=== PATIENT | female | born 1940 | race Caucasian/White ===

== ENCOUNTER 2017-03-07 17:57 | Emergency (ER) | payer OTHER ==
[~2017-03-07] VITALS: Ht 170.2 cm; Wt 86.0 kg
[2017-03-07 18:03] VITALS: TEMP 37.1; Ht 170.2 cm; Wt 86.0 kg
[2017-03-07] MEDS ORDERED: SODIUM CHLORIDE 0.9% 1000ML 1,000 ML IV STA (19:08)
[2017-03-07 19:14] LABS: BASO % 0.1 %; BASO ABS # 0.01 K/uL (0-0.2); COMPLETE YES; EOS % 0.1 %; HEMATOCRIT 38.8 % (37-47); IG% 0.4 %; LYMPH ABS # 0.72 K/uL (1.2-3.4); MEAN CELL VOLUME 91.5 fL (80-100); MEAN CORPUSCULAR HEMOGLOBIN 31.6 pg (25-34); MEAN CORPUSCULAR HGB CONC 34.5 g/dl (32-36); MEAN PLATELET VOLUME 9.8 fL (7.4-10.4); MONO % 4.7 %; NEUT % 90.7 %; PLATELET COUNT 324 K/uL (130-400); RED BLOOD COUNT 4.24 M/uL (4.2-5.4)
[2017-03-07 19:22] LABS: BUN/CREATININE RATIO 15.4 (10-20); CALCIUM 9.7 mg/dl (8.5-10.1); CREATININE 1.2 mg/dl (0.60-1.20); MAGNESIUM 2.3 mg/dl (1.8-2.4)
[2017-03-07] MEDS ORDERED: HYDR-4330 PO (19:27)
[2017-03-07] MEDS ORDERED: FLUT0.15 NAE (19:27)
[2017-03-07] MEDS ORDERED: PRLSR20 PO (19:27)
[2017-03-07] MEDS ORDERED: LISI-787 PO (19:27)
[2017-03-07] MEDS ORDERED: LIDOCAINE 4% CREAM 15 GM TUBE EXT STA (20:28)
[2017-03-07] MEDS ORDERED: LIDO4GEL3 RE (21:32)
--- NOTE | 2017-03-07 21:32 | EMERGENCY ROOM VISIT NOTE ---
History Report prepared by Pj: Amandeep Meade Under the Supervision of: Dr. Hitesh Linares M.D. First contact with patient: 18:59 Chief Complaint: GI ASSESSMENT Stated Complaint: BOWEL PROBLEM Nursing Triage Summary: Diarrhea all day. Denies abdominal pain. Denies N/V. Rectal pain 05/17. History of Present Illness The patient is a 77 year old female who presents to the Emergency Room with complaints of persistent diarrhea beginning today. She denies any blood in her stool, lightheadedness, abdominal pain, nausea, or vomiting. She denies any recent antibiotic use. The patient states that she had similar symptoms occur a few weeks ago with vomiting as well. She currently complains of rectal pain and weakness. She denies any known sick contacts. The patient states that she has not eaten much today. She notes that she gave herself an enema today because she felt like there was a blockage. Source of History: patient Onset: Today Quality: other (diarrhea) Associated Symptoms: + weakness, No nausea, No vomiting, No abdominal pain, No hematochezia Note: The patient denies any lightheadedness. She also complains of rectal pain. Review of Systems See HPI for pertinent positives & negatives. A total of 10 systems reviewed and were otherwise negative. Past Medical & Surgical Medical Problems: (1) Diarrhea (2) No Known Active Medical Problems Family History No pertinent family history stated. Social History Smoking Status: Never Smoker Current/Historical Medications Scheduled Fluticasone Propionate (Nasal) (Flonase Allergy Relief), 1 SPRAY VITA DAILY Lidocaine (Anorectal) (Topicaine 5), 1 APPLN RE BID Lisinopril/Hctz (Zestoretic 20MG/12.5MG), 1 TAB PO DAILY Omeprazole (Prilosec), 20 MG PO DAILY Scheduled PRN Hydrocodone-Acetaminophen (Lortab 5-325 mg), 1 TAB PO Q4 PRN for Pain Allergies Coded Allergies: No Known Allergies (Unverified , 03/07/17) Physical Exam Vital Signs Date Time Temp Pulse Resp B/P (MAP) Pulse Ox O2 Delivery O2 Flow Rate FiO2 03/07/17 21:43 74 20 149/74 94 03/07/17 20:57 96 22 166/81 95 Room Air 03/07/17 19:36 95 18 150/87 94 99 148/84 107 156/71 03/07/17 18:03 37.1 113 18 158/80 95 Room Air Physical Exam GENERAL: Patient is mildly anxious appearing and in mild distress. Appears dehydrated. HEENT: No acute trauma, normocephalic atraumatic, mucous membranes moist, no nasal congestion, no scleral icterus. NECK: No stridor, no adenopathy, no meningismus, trachea is midline. LUNGS: No dyspnea. Clear to auscultation and equal bilaterally. No wheeze, no rhonchi. HEART: Mildly tachycardic rate with a normal rhythm. No murmurs, rubs, gallops appreciated. ABDOMEN: Soft, nontender, bowel sounds positive, no masses appreciated, no peritonitis. BACK: No midline tenderness, no CVA tenderness EXTREMITIES: Normal motion all extremities, no cyanosis, no edema. NEUROLOGIC: Alert and oriented, no acute motor or sensory deficits, no focal weakness, cranial nerves grossly intact. SKIN: No rash, no jaundice, no diaphoresis. Medical Decision & Procedures Laboratory Results 03/07/17 18:58 Red Blood Count 4.24, Mean Corpuscular Volume 91.5, Mean Corpuscular Hemoglobin 31.6, Mean Corpuscular Hemoglobin Concent 34.5, Mean Platelet Volume 9.8, Neutrophils (%) (Auto) 90.7, Lymphocytes (%) (Auto) 4.0, Monocytes (%) (Auto) 4.7, Eosinophils (%) (Auto) 0.1, Basophils (%) (Auto) 0.1, Neutrophils # (Auto) 16.15, Lymphocytes # (Auto) 0.72, Monocytes # (Auto) 0.84, Eosinophils # (Auto) 0.01, Basophils # (Auto) 0.01 03/07/17 18:58 Test 03/07/17 18:58 White Blood Count 17.80 K/uL (4.8-10.8) Red Blood Count 4.24 M/uL (4.2-5.4) Hemoglobin 13.4 g/dL (12.0-16.0) Hematocrit 38.8 % (37-47) Mean Corpuscular Volume 91.5 fL (80-100) Mean Corpuscular Hemoglobin 31.6 pg (25-34) Mean Corpuscular Hemoglobin Concent 34.5 g/dl (32-36) Platelet Count 324 K/uL (130-400) Mean Platelet Volume 9.8 fL (7.4-10.4) Neutrophils (%) (Auto) 90.7 % Lymphocytes (%) (Auto) 4.0 % Monocytes (%) (Auto) 4.7 % Eosinophils (%) (Auto) 0.1 % Basophils (%) (Auto) 0.1 % Neutrophils # (Auto) 16.15 K/uL (1.4-6.5) Lymphocytes # (Auto) 0.72 K/uL (1.2-3.4) Monocytes # (Auto) 0.84 K/uL (0.11-0.59) Eosinophils # (Auto) 0.01 K/uL (0-0.5) Basophils # (Auto) 0.01 K/uL (0-0.2) RDW Standard Deviation 43.1 fL (36.4-46.3) RDW Coefficient of Variation 13.0 % (11.5-14.5) Immature Granulocyte % (Auto) 0.4 % Immature Granulocyte # (Auto) 0.07 K/uL (0.00-0.02) Anion Gap 8.0 mmol/L (3-11) Est Creatinine Clear Calc Drug Dose 44.2 ml/min Estimated GFR () 50.5 Estimated GFR (Non- 43.6 BUN/Creatinine Ratio 15.4 (10-20) Calcium Level 9.7 mg/dl (8.5-10.1) Magnesium Level 2.3 mg/dl (1.8-2.4) Date/Time Source Procedure Growth Status 03/07/17 20:15 Stool C.difficile Toxin B Gene (PCR) - Final No C. difficile toxin B gene detected Complete Laboratory results as reviewed by me. Medications Administered Medications (Trade) Dose Ordered Sig/Brady Route Start Time Stop Time Status Last Admin Dose Admin Sodium Chloride 1,000 ml @ 999 mls/hr Q1H1M STAT IV 03/07/17 19:08 03/07/17 20:08 DC 03/07/17 19:36 999 MLS/HR Lidocaine (AneCream 4%) 1 appln NOW STAT EXT 03/07/17 20:28 03/07/17 20:29 DC 03/07/17 20:56 1 APPLN ED Course 1903: The patient was evaluated in room A4. A complete history and physical exam was performed. 1907: Ordered Sodium Chloride 1000 ml @ 999 mls/hr. 2027: I reassessed the patient. She is sitting on the edge of her bed, resting comfortably. Her heart rate is 90. Ordered AneCream 4% 1 appln EXT. 2129: Reevaluated the patient. She is feeling much better and would like to go home. Discussed results and discharge instructions: she verbalized understanding and agreement. The patient will try to keep hydrated while monitoring her sugars. I suggested Desitin cream as needed for rectal discomfort. I stressed return if she develops a fever, vomiting, abdominal pain , or passing out. The patient is ready for discharge. Medical Decision Differential: Viral, Bacterial, Parasitic, Iatrogenic, C-Diff, Malabsorption, Irritable Bowel Disease, IBS, Ischemic Bowel, amongst other pathologies entertained. 77 yr old female arrives for evaluation of diarrhea. Notes irritation of rectum from wiping so often which improved with lidocaine. No vomiting, fevers , nor any TTP of her abdomen. No shob nor other infectious symptoms. I do not feel further work-up of WBC elevation necessary at this time. Denies urinary symptoms. She is somewhat dehydrated appearing which is cause of elevated wbc and tachycardia. Not significantly orthostatic. Much improved with IV fluids. She is feeling well and wishes for discharge. My customary discharge instructions were reviewed with patient. Medication Reconcilliation Current Medication List: was personally reviewed by me Blood Pressure Screening Patient's blood pressure: Elevated blood pressure Blood pressure disposition: Elevated BP felt to be situational Impression Primary Impression: Diarrhea Scribe Attestation The scribe's documentation has been prepared under my direction and personally reviewed by me in its entirety. I confirm that the note above accurately reflects all work, treatment, procedures, and medical decision making performed by me. Departure Information Dispostion Home / Self-Care Prescriptions Lidocaine (Anorectal) (TOPICAINE 5) 5 % Gel 1 APPLN RE BID, #1 TUBE Prov: Hitesh Linares M.D. 03/07/17 Patient Instructions Diarrhea, My [facility]
[2017-03-07 21:43] VITALS: BP 149/74; PULSE 74; O2SAT 94
--- NOTE | 2017-03-09 13:21 | Pharmacy Progress Note ---
ED Pharmacist Progress Note Date of Service: Mar 09, 2017. Received call from Ramona wanting to clarify lidocaine cream vs. gel. OK to substitute 5% rectal gel with 5% rectal cream per Dr. Linares.
== END 2017-03-07 21:44 | disposition home or self-care (01) ==
LOC: C.EDB 18:00 → C.EDA 21:44
DX: R19.7 Diarrhea, unspecified (principal); K62.89 Other specified diseases of anus and rectum